=== PATIENT | male | born 1985 | race American Indian/Alaskan Native ===

== ENCOUNTER 2019-02-06 17:13 | Emergency (ER) | payer SELFPAY ==
[2019-02-06] MEDS ORDERED: TORADOL IV ONE (17:51)
[2019-02-06] MEDS ORDERED: NACL 0.9% 1000 ML 1,000 ML IV ONE (17:51)
--- NOTE | 2019-02-06 17:55 | Emergency Department Report ---
ED General Adult HPI - General Chief complaint: Urogenital-Male Stated complaint: HEART PAIN/SCROTUM PAIN/ Time Seen by Provider: 02/06/19 17:33 Source: patient, EMS Mode of arrival: Stretcher Limitations: No Limitations - History of Present Illness Initial comments: 33-year-old male presents to ED with complaint of palpitations and left flank pain. Patient states he has been using cocaine for the last 3 days, now reports sensation of heart racing. Patient denies chest pain. Patient also reports 3 week history of left flank pain radiating into the scrotum. Patient denies scrotal swelling, hematuria, dysuria, urinary frequency. The patient reported left-sided abdominal pain, denies fever, nausea, vomiting. Patient also reports nosebleed. -: days(s) (3), week(s) (3) Location: chest, genitals Severity scale (0 -10): 0 Consistency: intermittent Improves with: none Worsens with: none Associated Symptoms: denies: chest pain, fever/chills, nausea/vomiting, shortness of breath - Related Data Previous Rx's Medication Instructions Recorded Last Taken Type Naproxen [Naprosyn] 500 mg PO BID #20 tablet 02/06/19 Unknown Rx Allergies Allergy/AdvReac Type Severity Reaction Status Date / Time morphine Allergy Unknown Verified 02/06/19 17:33 ED Review of Systems ROS: Stated complaint: HEART PAIN/SCROTUM PAIN/ Other details as noted in HPI Comment: All other systems reviewed and negative Constitutional: denies: chills, fever Respiratory: denies: shortness of breath Cardiovascular: palpitations. denies: chest pain Gastrointestinal: abdominal pain. denies: nausea, vomiting Genitourinary: testicular pain. denies: dysuria, frequency, hematuria Musculoskeletal: as per HPI ED Past Medical Hx - Past Medical History Previous Medical History?: Yes Additional medical history: PTSD - Social History Smoking Status: Current Every Day Smoker Substance Use Type: Alcohol - Medications Home Medications: Home Medications Medication Instructions Recorded Confirmed Last Taken Type Naproxen [Naprosyn] 500 mg PO BID #20 tablet 02/06/19 Unknown Rx ED Physical Exam - General Limitations: No Limitations General appearance: alert, in no apparent distress - Head Head exam: Present: atraumatic, normocephalic - Eye Eye exam: Present: normal appearance - ENT ENT exam: Present: mucous membranes moist, other (no active nosebleed at this time, no septal abnormality noted) - Neck Neck exam: Present: normal inspection - Respiratory Respiratory exam: Present: normal lung sounds bilaterally. Absent: respiratory distress - Cardiovascular Cardiovascular Exam: Present: regular rate, normal rhythm - GI/Abdominal GI/Abdominal exam: Present: soft, tenderness (mild LLQ pain). Absent: distended - exam: Present: normal inspection, testicular tenderness (bilateral). Absent: urethral discharge, scrotal swelling External exam: Absent: erythema, swelling - Extremities Exam Extremities exam: Present: normal inspection - Back Exam Back exam: Present: CVA tenderness (L) - Neurological Exam Neurological exam: Present: alert, oriented X3 - Psychiatric Psychiatric exam: Present: normal affect, normal mood - Skin Skin exam: Present: warm, dry, intact, normal color ED Course Vital Signs 02/06/19 02/06/19 02/06/19 17:43 19:15 19:32 Temperature 98.9 F 98.7 F Pulse Rate 81 67 Respiratory 18 15 18 Rate Blood Pressure 142/87 140/89 [Left] O2 Sat by Pulse 99 100 Oximetry 02/06/19 21:53 Temperature 98.5 F Pulse Rate 69 Respiratory 18 Rate Blood Pressure 133/77 [Left] O2 Sat by Pulse 100 Oximetry - Reevaluation(s) Reevaluation #1: 02/06/19 18:15 Pt refused EKG ED Medical Decision Making - Lab Data Result diagrams: 02/06/19 18:13 02/06/19 18:13 - Radiology Data Radiology results: report reviewed, image reviewed - Medical Decision Making 33 yo M w/ polysubstance abuse (drug screen positive for amphetamines, cocaine, marijuana) and left flank pain for several weeks. CT shows bilateral renal cysts, no other abnormalities. Scrotal US negative. Labs unremarkable, including UA and renal function. Reports palpitations, however HR and EKG normal, trop negative. Epistaxis controlled, with no active bleeding, no septal perforation visualized. Pt informed of dangers of continued drug use. Informed of renal cysts and instructed to f/u as an outpt. Pt has been comfortable, sleeping during most of ED stay. Appears nontoxic. Return precautions given. - Differential Diagnosis drug abuse, arrythmia, pyelonephritis kidney stone Critical care attestation.: If time is entered above; I have spent that time in minutes in the direct care of this critically ill patient, excluding procedure time. ED Disposition Clinical Impression: Palpitations, Substance abuse, Renal cyst Disposition: TO HOME OR SELFCARE Is pt being admited?: No Condition: Stable Instructions: Polysubstance Abuse (ED), Flank Pain (ED) Prescriptions: Naproxen [Naprosyn] 500 mg PO BID #20 tablet Referrals: MONSERRAT JAFFE MD [Staff Physician] - 3-5 Days Time of Disposition: 21:26
[2019-02-06 18:11] LABS: Bilirubin,Urine NEG (Negative); Blood,Urine NEG (Negative); Color,Urine Yellow (Yellow); Mucus,Urine 1+ /HPF; Protein,Urine <15 mg/dL mg/dL (Negative); Urobilinogen,Urine < 2.0 mg/dL (<2.0)
[2019-02-06 18:35] LABS: Benzodiazepines Screen,Urine PRESUMPTIVE NEGATIVE; Methadone Screen,Urine PRESUMPTIVE NEGATIVE; Opiate Screen,Urine PRESUMPTIVE NEGATIVE
[2019-02-06 18:40] LABS: Basophils % (Auto) 0.3 % (0.0-1.8); Eosinophils # (Auto) 0.2 K/mm3 (0.0-0.4); Eosinophils % (Auto) 1.8 % (0.0-4.3); Hematocrit 38.1 % (35.5-45.6); Hemoglobin 13.3 gm/dl (11.8-15.2); Lymphocytes # (Auto) 2.2 K/mm3 (1.2-5.4); Lymphocytes % (Auto) 18.9 % (13.4-35.0); Mean Corpuscular HGB Conc 35 % (32-34); Mean Corpuscular Volume 93 fl (84-94); Monocytes # (Auto) 1.2 K/mm3 (0.0-0.8); Monocytes % (Auto) 10.7 % (0.0-7.3); Platelet Count 195 K/mm3 (140-440); Red Blood Count 4.08 M/mm3 (3.65-5.03); Red Cell Distribution Width 14.1 % (13.2-15.2)
[2019-02-06 18:48] LABS: Amphetamine Screen,Urine PRESUMPTIVE POSITIVE; Cannabinoid Screen,Urine PRESUMPTIVE POSITIVE; Cocaine Screen,Urine PRESUMPTIVE POSITIVE
[2019-02-06 18:58] LABS: Alanine Aminotransferase 16 units/L (7-56); BUN/Creatinine Ratio 9; Blood Urea Nitrogen 7 mg/dL (9-20); Calcium 9.4 mg/dL (8.4-10.2); Hemolysis Index 14
--- NOTE | 2019-02-06 20:30 | Ultrasound Report ---
PROCEDURE: US TESTICULAR DOPPLER COMP TECHNIQUE: Real-time shane-scale and color flow Doppler sonography in multiple planes of the scrotum, testicles, and epididymes was performed. Velocity spectral waveform analysis and color Doppler imagi ng of the arterial inflow and venous outflow of the testicles was performed with image documentation. HISTORY: pain COMPARISONS: None . FINDINGS: RIGHT TESTICLE: Size: 3.1 x 1.7 x 2.8 cm . Appearance: Normal size and echotexture . There is diffuse microlithiasis. Arterial blood flow: Normal spectral waveforms, flow velocities and color flow images.. Venous blood flow: Normal spectral waveforms and color flow images. Right epididymis: Normal size and echotexture . Hydrocele: None . LEFT TESTICLE Size: 2.8 x 2 x 2.7 cm . Appearance: Normal size and echotexture . There is diffuse microlithiasis. Arterial blood flow: Normal spectral waveforms, flow velocities and color flow images.. Venous blood flow: Normal spectral waveforms and color flow images. Left epididymis: Normal size and echotexture . Hydrocele: None . 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 There is no discrete mass. There is no t orsion or orchitis. . This document is electronically signed by Jose Juan Haines MD., Feb 06 2019 08:28:38 PM ET
--- NOTE | 2019-02-06 21:16 | Cat Scan Report ---
PROCEDURE: CT ABDOMEN PELVIS WO CON TECHNIQUE: Computerized axial tomography of the abdomen and pelvis was performed without intravenous contrast. This study is performed without intravascular contrast material and its sensitivity for ab dominal and pelvic pathology, including neoplasms, inflammation, abscess, free fluid, thrombosis, art erial dissection and infarction, is reduced compared with a contrast enhanced study. CT DOSE LENGTH PRODUCT: 942.7 mGycm HISTORY: left flank and scrotal pain. COMPARISONS: None . FINDINGS: Visualized lower thorax: No significant abnormality. Liver: Normal size and attenuation. Spleen: Normal size and attenuation. Gallbladder and biliary system: Normal. Pancreas: Normal. Adrenals: Normal. Kidneys: Bilateral renal cysts are seen. Largest is in the left kidney and appears septated, measurin g up to 4.7 cm. No hydronephrosis or urolithiasis. GI tract: Appendix is visualized and does not appear inflamed. No bowel obstruction or inflammation . Lymph nodes and mesentery: Normal. Vasculature: Normal.. Bladder: Normal. Reproductive organs: Normal. Peritoneum: No free fluid Musculoskeletal structures: Healed right inferior pubic ramus fracture.. Other: None. IMPRESSION: Bilateral renal cysts with a septated cyst noted in the left kidney. This could be better classified with post IV contrast CT if clinically indicated. No hydronephrosis or urolithiasis This document is electronically signed by Tamara Turk MD., Feb 06 2019 09:14:14 PM ET
[2019-02-06 21:54] VITALS: BP 133/77
== END 2019-02-06 21:53 | disposition home or self-care (01) ==
LOC: ED 17:13
DX: N28.1 Cyst of kidney, acquired (principal); R00.2 Palpitations; F14.10 Cocaine abuse, uncomplicated; F17.200 Nicotine dependence, unspecified, uncomplicated; F43.10 Post-traumatic stress disorder, unspecified
CPT/HCPCS: 36415; 74176; 80053; 80307; 81001; 84484; 85025; 93005; 93010; 93975; 96374; 99284; J1885; J7030

== ENCOUNTER 2019-02-26 18:06 | Emergency (ER) | payer SELFPAY ==
[2019-02-26] MEDS ORDERED: HALDOL ONE (18:09)
[2019-02-26] MEDS ORDERED: ATIVAN ONE (18:09)
[2019-02-26] MEDS ORDERED: ATIVAN IM PRN (18:10)
[2019-02-26] MEDS ORDERED: HALDOL IM PRN (18:10)
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
[2019-02-26 18:53] LABS: Hematocrit 42.1 % (35.5-45.6); Hemoglobin 14.6 gm/dl (11.8-15.2); Mean Corpuscular HGB Conc 35 % (32-34); Mean Corpuscular Volume 94 fl (84-94); Platelet Count 226 K/mm3 (140-440); Red Blood Count 4.46 M/mm3 (3.65-5.03); Red Cell Distribution Width 14.5 % (13.2-15.2)
[2019-02-26 19:13] LABS: BUN/Creatinine Ratio 11; Blood Urea Nitrogen 9 mg/dL (9-20); Calcium 9.5 mg/dL (8.4-10.2); Hemolysis Index 11
[2019-02-26] MEDS ORDERED: TYLENOL PO PRN (20:09)
[2019-02-26] MEDS ORDERED: IBUPROFEN PO PRN (20:09)
[2019-02-26] MEDS ORDERED: PROVENTIL IH PRN (20:09)
--- NOTE | 2019-02-26 20:51 | Cat Scan Report ---
PROCEDURE: CT HEAD/BRAIN WO CON TECHNIQUE: Computerized tomography of the head was performed without contrast material. CT DOSE LENGTH PRODUCT: 805.4 mGycm HISTORY: Medical Clearance Psych COMPARISONS: None . FINDINGS: Skull and scalp: Normal . Paranasal sinuses: Diffuse mucosal thickening is noted involving ethmoid, sphenoid and frontal sinus es. . Ventricles and subarachnoid spaces: Normal . Cerebrum: No evidence of hemorrhage, acute infarction or mass . Cerebellum and brainstem: No evidence of hemorrhage, acute infarction or mass . Vasculature: Normal . Other: None . ASPECTS: 10 IMPRESSION: No acute intracranial abnormality Chronic sinusitis. This document is electronically signed by Zeb Aguilera MD., February 26 2019 09:49:26 PM ET
--- NOTE | 2019-02-26 20:57 | XRay Report ---
PROCEDURE: XR CHEST 1V AP TECHNIQUE: Chest radiograph single view. HISTORY: cough COMPARISONS: None . FINDINGS: Heart: Normal. Mediastinum/Vessels: Normal. Lungs/Pleural space: Normal. Bony thorax: No acute osseous abnormality. Life support devices: None. IMPRESSION: No acute cardiopulmonary abnormality. This document is electronically signed by Luther Will MD., February 26 2019 09:55:21 PM ET
[2019-02-27 11:17] LABS: Bilirubin,Urine NEG (Negative); Blood,Urine NEG (Negative); Color,Urine Yellow (Yellow); Mucus,Urine 1+ /HPF; Protein,Urine <15 mg/dL mg/dL (Negative)
[2019-02-27 11:25] LABS: Benzodiazepines Screen,Urine PRESUMPTIVE NEGATIVE; Methadone Screen,Urine PRESUMPTIVE NEGATIVE; Opiate Screen,Urine PRESUMPTIVE NEGATIVE
[2019-02-27 12:25] LABS: Amphetamine Screen,Urine PRESUMPTIVE POSITIVE; Cannabinoid Screen,Urine PRESUMPTIVE POSITIVE; Cocaine Screen,Urine PRESUMPTIVE NEGATIVE
--- NOTE | 2019-02-27 13:19 | Consultation ---
History of Present Illness - Reason for Consult Consult date: 02/27/19 Reason for consult: Mental Health Evaluation Requesting physician: HANNAH GOOD - Chief Complaint Chief complaint: "I am good" - History of Present Psychiatric Illness 33 y.o. AA male who presented to the ER for aggressive behavior. Today the patient was uncooperative during the assessment. I the provider attempted to engage the patient several times, but was unsuccessful. Will attempt to reassess the patient in 24 hours. No gestures of SI/HI's. Medications and Allergies Allergies Allergy/AdvReac Type Severity Reaction Status Date / Time morphine Allergy Unknown Verified 02/06/19 17:33 Home Medications Medication Instructions Recorded Confirmed Last Taken Type Naproxen [Naprosyn] 500 mg PO BID #20 tablet 02/06/19 Unknown Rx Active Meds: Active Medications Acetaminophen (Tylenol) 650 mg PO Q6HR PRN PRN Reason: Pain Albuterol (Proventil) 2.5 mg IH Q4HR PRN PRN Reason: Cough Haloperidol Lactate (Haldol) 5 mg IM Q6HR PRN PRN Reason: Agitation Ibuprofen (Ibuprofen) 600 mg PO Q6HR PRN PRN Reason: Pain , Severe (7-10) Lorazepam (Ativan) 2 mg IM Q4HR PRN PRN Reason: Agitation Past psychiatric history - Past Medical History Past Medical History: other (Unable to obtain ) Past Surgical History: Other (Unable to obtain ) - past Psychiatric treatment and history psychiatric treatment history: Unable to obtain a psy hx and fam psy hx. - Social History Social history: lives with family Mental Status Exam - Vital signs Last Vital Signs Temp 98.4 F 02/27/19 08:35 Pulse 88 02/27/19 08:35 Resp 16 02/27/19 08:35 BP 129/86 02/27/19 08:35 Pulse Ox 97 02/27/19 08:35 - Exam Narrative exam: Unable to complete the MSE because the patient refused to cooperate. Results Result Diagrams: 02/26/19 18:24 02/26/19 18:24 Abnormal lab results 02/26/19 02/26/19 02/26/19 Range/Units 18:24 18:24 18:24 MCH 33 H (28-32) pg MCHC 35 H (32-34) % Chloride 108.3 H (98-107) mmol/L Glucose 115 H (75-100) mg/dL Total Creatine Kinase 253 H (55-170) units/L Salicylates < 0.3 L (2.8-20.0) mg/dL Acetaminophen (10.0-30.0) ug/mL 02/26/19 Range/Units 18:24 MCH (28-32) pg MCHC (32-34) % Chloride (98-107) mmol/L Glucose (75-100) mg/dL Total Creatine Kinase (55-170) units/L Salicylates (2.8-20.0) mg/dL Acetaminophen < 5.0 L (10.0-30.0) ug/mL All other labs normal. Assessment and Plan Assessment and plan: Impression: Today the patient was uncooperative during the assessment. The patient was positive for amphetamines and marijuana. Recommendation/Plan: Continue 1013 and reassess in 24 hours. Dispo: The patient was referred to inpatient psy services. Will staff with Dr. Della Hernandez.
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
[2019-02-28 20:00] VITALS: BP 132/84
== END 2019-03-01 01:24 ==
LOC: EEVIPCON 18:06 → ED 18:06
DX: R45.851 Suicidal ideations (principal); R45.850 Homicidal ideations; F43.10 Post-traumatic stress disorder, unspecified; R05 Cough; R51 Headache; Z88.6 Allergy status to analgesic agent
CPT/HCPCS: 36415; 70450; 71045; 80048; 80307; 81001; 82550; 85027; 93005; 93010; 99285; G0480; J1630; J2060; 80320

== ENCOUNTER 2021-12-27 20:06 | Emergency (ER) | payer SELFPAY ==
[2021-12-27 20:32] VITALS: BP 164/78
== END 2021-12-27 21:55 | disposition left against medical advice (07) ==
LOC: ED 20:06
DX: M79.18 Myalgia, other site (principal); Z53.21 Procedure and treatment not carried out due to patient leaving prior to being seen by health care provider

== ENCOUNTER 2022-02-01 17:52 | Emergency (ER) | payer SELFPAY ==
[2022-02-02] MEDS ORDERED: IBUPROFEN 600 MG TAB PO ONE (03:04)
[2022-02-02] MEDS ORDERED: LIDOCAINE (1%) 10 MG/1 ML VIAL 20 ML MDV INFILTRATI ONE (03:04)
[2022-02-02] MEDS ORDERED: TETANUS,DIPH,PERTUSS(ACELL) VACCINE 0.5 ML SYRINGE IM ONE (03:05)
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
[2022-02-02 06:48] VITALS: BP 136/87
== END 2022-02-02 06:48 | disposition home or self-care (01) ==
LOC: ED 17:52
DX: S01.412A Laceration without foreign body of left cheek and temporomandibular area, initial encounter (principal); F20.9 Schizophrenia, unspecified; F17.200 Nicotine dependence, unspecified, uncomplicated; Z88.5 Allergy status to narcotic agent; Z79.899 Other long term (current) drug therapy; Y04.8XXA Assault by other bodily force, initial encounter; Y93.89 Activity, other specified; Y92.89 Other specified places as the place of occurrence of the external cause; Y99.8 Other external cause status
CPT/HCPCS: 70486; 90471; 90715; 99283

== ENCOUNTER 2022-05-17 06:34 | Emergency (ER) | payer SELFPAY | END 2022-05-17 07:30 | disposition left against medical advice (07) | LOC: ED 06:34 | DX: K14.6 Glossodynia (principal); Z53.21 Procedure and treatment not carried out due to patient leaving prior to being seen by health care provider ==